=== PATIENT | female | born 1965 | race Caucasian/White ===

== ENCOUNTER 2022-08-25 13:51 | Observation (INO) | payer OTHER ==
[2022-08-25] MEDS ORDERED: SODIUM CHLORIDE 0.9% 500 ML 500 ML IV STA (14:15)
--- NOTE | 2022-08-25 14:18 | ED ---
Chest Pain HPI - General Chief Complaint: Chest Pain Stated Complaint: dizziness, chest pain Time Seen by Provider: 08/25/22 14:07 Source: patient, RN notes reviewed Mode of arrival: ambulatory Limitations: no limitations - History of Present Illness Initial Comments: 57-year-old female presents emergency Department chief complaint left-sided chest pain, shoulder pain. Patient states started while she was at work. She does admit that she was lifting some heavy things and is unsure she injured herself off but also complains an indigestion of chest discomfort. Patient states that she was a smoker for 40 years. Patient states that she was seen [facility] and sent here for further evaluation. Patient states she's ALLERGIC aspirin refuses aspirin. Patient states she had family member that at this stage from myocardial infarction. Patient states she so she was brought on diabetic in the past but has never followed up. Patient does this for rash states pain started chest and left shoulder - Related Data Allergies Allergy/AdvReac Type Severity Reaction Status Date / Time aspirin Allergy Anaphylaxis Verified 08/25/22 14:06 cephalexin [From Keflex] Allergy Unknown Verified 08/25/22 14:07 Penicillins Allergy Unknown Verified 08/25/22 14:07 Childhood Review of Systems ROS Statement: Those systems with pertinent positive or pertinent negative responses have been documented in the HPI. ROS Other: All systems not noted in ROS Statement are negative. EKG Findings - EKG Comments: EKG Findings:: EKG performed at 14:14 sinus rhythm rate of 76 TN 165/105 QT/ QTC 387/417 - EKG Results: EKG: interpreted by ILENE Past Medical History History of Any Multi-Drug Resistant Organisms: None Reported Past Surgical History: Appendectomy Past Psychological History: No Psychological Hx Reported Smoking Status: Former smoker Past Alcohol Use History: None Reported Past Drug Use History: None Reported General Exam Limitations: no limitations General appearance: alert, in no apparent distress Head exam: Present: atraumatic, normocephalic, normal inspection Eye exam: Present: normal appearance, PERRL, EOMI. Absent: scleral icterus, conjunctival injection, periorbital swelling ENT exam: Present: normal exam, normal oropharynx, mucous membranes moist Neck exam: Present: normal inspection, full ROM. Absent: tenderness, meningismus, lymphadenopathy Respiratory exam: Present: normal lung sounds bilaterally. Absent: respiratory distress, wheezes, rales, rhonchi, stridor Cardiovascular Exam: Present: regular rate, normal rhythm, normal heart sounds. Absent: systolic murmur, diastolic murmur, rubs, gallop, clicks GI/Abdominal exam: Present: soft, normal bowel sounds. Absent: distended, tenderness, guarding, rebound, rigid Course Vital Signs 08/25/22 08/25/22 14:00 15:37 Temperature 97.8 F Pulse Rate 86 85 Respiratory 18 20 Rate Blood Pressure 104/69 127/89 O2 Sat by Pulse 96 97 Oximetry Chest Pain MDM - MDM Was pt. sent in by a medical professional or institution (, PA, CUFF SETTER LOCKSTITCH, urgent care, hospital, or alf...) When possible be specific @ -[facility] Did you speak to anyone other than the patient for history (EMS, parent, family, police, friend...)? What history was obtained from this source @ -No Did you review nursing and triage notes (agree or disagree)? Why? @ -I reviewed and agree with nursing and triage notes Were old charts reviewed (outside hosp., previous admission, EMS record, old EKG, old radiological studies, urgent care reports/EKG's, alf records)? Report findings @ -No old charts were reviewed Differential Diagnosis (chest pain, altered mental status, abdominal pain women, abdominal pain men, vaginal bleeding, weakness, fever, dyspnea, syncope, headache, dizziness, GI bleed, back pain, seizure, CVA, palpatations, mental health, musculoskeletal)? @ -Differential Chest Pain: Stable Angina, Unstable Angina, STEMI, NSTEMI Aortic Dissection, Pneumothorax, Musculoskeletal, Esophageal Spasm GERD, Cholecystitis, Pancreatitis, Zoster, this is not meant to be an all-inclusive list. e EKG interpreted by me (3pts min.). @ -As above X-rays interpreted by me (1pt min.). @ -Chest x-ray shows no acute cardio pulmonary process. CT interpreted by me (1pt min.). @ -None done U/S interpreted by me (1pt. min.). @ -None done What testing was considered but not performed or refused? (CT, X-rays, U/S, labs)? Why? @ -None What meds were considered but not given or refused? Why? @ -None Did you discuss the management of the patient with other professionals (professionals i.e. , PA, CU[employer] SETTER LOCKSTITCH, lab, RT, psych nurse, aids social worker, lithographic general worker, teacher, security flex officer, rehabilitation case coordinator)? Give summary @ -Dr lopez for admission given cardiac risk factors and current symptomology of left sided chest and shoulder pain. Was smoking cessation discussed for >3mins.? @ -No Was critical care preformed (if so, how long)? @ -No Were there social determinants of health that impacted care today? How? (Homelessness, low income, unemployed, alcoholism, drug addiction, transportation, low edu. Level, literacy, decrease access to med. care, prison, rehab)? @ -No Was there de-escalation of care discussed even if they declined (Discuss DNR or withdrawal of care, Hospice)? DNR status @ -No What co-morbidities impacted this encounter? (DM, HTN, Smoking, COPD, CAD, Cancer, CVA, ARF, Chemo, Hep., AIDS, mental health diagnosis, sleep apnea, morbid obesity)? @ -Smoking history, family heart history Was patient admitted / discharged? Hospital course, mention meds given and [place], prescriptions, significant lab abnormalities, going to OR and other pertinent info. @ -hospital admitted to observation for cardiac rule out patient has significant family history and multiple risk factors, patient's heart score is 4 patient's case discussed with sound physician for admission Undiagnosed new problem with uncertain prognosis? @ -No Drug Therapy requiring intensive monitoring for toxicity (Heparin, Nitro, Insulin, Cardizem)? @ -No Were any procedures done? @ -No Diagnosis/symptom? @ -Chest pain Acute, or Chronic, or Acute on Chronic? @ -Acute Uncomplicated (without systemic symptoms) or Complicated (systemic symptoms)? @ -Uncomplicated Side effects of treatment? @ -No Exacerbation, Progression, or Severe Exacerbation? @ -No Poses a threat to life or bodily function? How? (Chest pain, [place], MD, pneumonia, PE, COPD, DKA, ARF, appy, cholecystitis, CVA, Diverticulitis, Homicidal, Suicidal, threat to staff... and all critical care pts) @ -Yes chest pain at risk for myocardial infarction, cardiac arrest Disposition Clinical Impression: Chest pain Disposition: ADMITTED IP TO THIS [facility] Condition: Fair Referrals: None,Stated [Primary Care Provider] - 1-2 days Time of Disposition: 15:41
[2022-08-25 14:56] LABS: Basophils % (A) 0 %; Eosinophils # (A) 0.2 k/uL (0-0.7); Eosinophils % (A) 2 %; HCT 39.8 % (34.0-46.0); HGB 13.5 gm/dL (11.4-16.0); Lymphocytes % (A) 23 %; MCH 32.5 pg (25.0-35.0); MCHC 33.8 g/dL (31.0-37.0); MCV 96.1 fL (80.0-100.0); Mean Platelet Volume 7.3; Monocytes # (A) 0.4 k/uL (0-1.0); Monocytes % (A) 5 %; Neutrophils # (A) 5.8 k/uL (1.3-7.7); Neutrophils % (A) 67 %; Platelet Count 244 k/uL (150-450); RBC 4.14 m/uL (3.80-5.40); RDW 12.3 % (11.5-15.5); WBC 8.6 k/uL (3.8-10.6)
[2022-08-25 15:06] LABS: Albumin 4.1 g/dL (3.5-5.0); Calcium 9.2 mg/dL (8.4-10.2); Magnesium 1.8 mg/dL (1.6-2.3); Potassium 4.2 mmol/L (3.5-5.1); Total Bilirubin 0.3 mg/dL (0.2-1.3); Total Protein 6.7 g/dL (6.3-8.2)
[2022-08-25 15:23] LABS: INR 0.9 (<1.2)
--- NOTE | 2022-08-25 15:32 | XR ---
EXAMINATION TYPE: XR chest 2V DATE OF EXAM: 08/25/2022 COMPARISON: None HISTORY: 57-year-old female with chest pain and dizziness TECHNIQUE: PA and lateral views FINDINGS: Heart normal size. Aorta and pulmonary vasculature within normal limits. Mild interstitial prominence has a chronic appearance. No consolidation or pleural effusion. IMPRESSION: No acute cardiopulmonary process.
[2022-08-25] MEDS ORDERED: NITROGLYCERIN SL TABS 0.4 MG TAB SUBLINGUAL PRN (15:55)
--- NOTE | 2022-08-25 16:51 | P.HPIM ---
History of Present Illness H&P Date: 08/25/22 History of Presenting Illness: Patient is a pleasant 57-year-old female with a past medical history of hypertension and hyperlipidemia. Patient reports previously being on medication but took herself off of medication many years ago secondary to lack of follow- up. 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 She states today while at work she developed pain to her left lateral neck and shoulder accompanied by some dizziness/lightheadedness and a squeezing sensation to her left anterior chest. Patient states she was working and does have a physical job but has never felt this sensation before. Patient denies personally having a cardiac history but does report that her father at a younger age from heart disease. Patient reports limited known family history due to some personal family dynamics. Patient denies having any diaphoresis, fevers, chills, changes in vision or hearing, palpitations, shortness of breath, cough or congestion, or experiencing any numbness/focal weakness in her extremities. She underwent full evaluation in the emergency department. Labs completed and reviewed. CBC, coags, and CMP were unremarkable with the exception of mild prerenal azotemia with BUN of 28.. D-dimer was negative at 0.35. Troponin negative at less than 0.012. ProBNP 20. Chest x-ray completed and radiology report reviewed stating negative for acute cardiopulmonary process. EKG completed showing normal sinus rhythm at 76 bpm with no noted T- wave or ST abnormalities showing no signs of acute ischemia upon personal review and interpretation. Discussed patient's history, presenting symptoms, physical exam findings, laboratory analysis, and imaging results in detail with ED provider. Patient to be admitted under our services to observation unit with telemetry and consultation placed to cardiology at this time. Review of systems: Pertinent positives and negatives as discussed in HPI, a complete review of systems was performed and all other systems are negative. Physical exam: Vital signs reviewed and stable. General: Nontoxic, no distress and appears stated age. Obese. Derm: Skin warm and dry, normal coloration for ethnicity. Head: Atraumatic, normocephalic and symmetric. Eyes: EOMs intact, no lid lag, and anicteric sclera Mouth: no lip lesions, mucus membranes moist Cardiovascular: regular rate and rhythm with normal S1S2, no murmur, positive posterior tibial pulses bilaterally, and cap refill < 2 seconds. Lungs: Respirations even, regular, and unlabored on room air. Lungs CTA bilaterally, no rhonchi, no rales, no wheezing, and no accessory muscle usage. Abdominal: soft, nontender to palpation, no guarding, no appreciable organ omegaly Ext: ROM intact. No gross muscle atrophy, no edema, no contractures Neuro: Speech clear, face symmetrical and CN II-XII grossly intact with no noted focal neuro deficits Psych: Alert and oriented to person, place, time, and situation. Appropriate and pleasant affect. Assessment and Plan of Care: Chest pain, rule out acute coronary event Reported history of hypertension and hyperlipidemia -Labs completed and reviewed. CBC, coags, and CMP were unremarkable with the exception of mild prerenal azotemia with BUN of 28.. D-dimer was negative at 0.35. Troponin negative at less than 0.012. ProBNP 20. -Chest x-ray completed and radiology report reviewed stating negative for acute cardiopulmonary process. -EKG completed showing normal sinus rhythm at 76 bpm with no noted T-wave or ST abnormalities showing no signs of acute ischemia upon personal review and interpretation. -Discussed patient's history, presenting symptoms, physical exam findings, laboratory analysis, and imaging results in detail with ED provider. Patient to be admitted under our services to observation unit with telemetry. -Cardiology consulted, appreciate further recommendations -Telemetry monitoring -Trend troponins -Cardiac diet, NPO at midnight -Lipid profile and hemoglobin A1c with a.m. labs. -Echocardiogram -Aspirin not given secondary to reports of anaphylactic ALLERGY to this medication The patient is admitted with an anticipated less than 2 midnight stay for evaluation of chest pain CODE STATUS: Full code DVT prophylaxis: Lovenox Discussed with: Patient, RN, in ED provider Anticipated discharge date: 24-[address]: Home Patient was seen independently by Nurse Practitioner. This document was prepared using [employer] dictation software. Please allow for errors in supervisor prep while rare they do occur. Past Medical History History of Any Multi-Drug Resistant Organisms: None Reported Past Surgical History: Appendectomy Past Psychological History: No Psychological Hx Reported Smoking Status: Former smoker Past Alcohol Use History: None Reported Past Drug Use History: None Reported Medications and Allergies Home Medications Medication Instructions Recorded Confirmed Type No Known Home Medications 05/25/23 05/25/23 History Allergies Allergy/AdvReac Type Severity Reaction Status Date / Time aspirin Allergy Anaphylaxis Verified 08/25/22 16:43 cephalexin [From Keflex] Allergy Unknown Verified 08/25/22 16:43 Penicillins Allergy Unknown Verified 08/25/22 16:43 Childhood Physical Exam Vitals: Vital Signs Temp Pulse Resp BP Pulse Ox 08/25/22 16:34 79 18 117/88 96 08/25/22 15:37 85 20 127/89 97 08/25/22 14:00 97.8 F 86 18 104/69 96 Intake and Output 08/25/22 08/25/22 08/25/22 06:59 14:59 22:59 Other: Weight 95.254 kg Results CBC & Chem 7: 08/25/22 14:34 08/25/22 14:34 Labs: Abnormal Lab Results - Last 24 Hours (Table) 08/25/22 Range/Units 14:34 BUN 28 H (7-17) mg/dL Glucose 104 H (74-99) mg/dL
[2022-08-25] MEDS ORDERED: MELATONIN 3 MG TABLET PO PRN (19:13)
[2022-08-25] MEDS ORDERED: ALPRAZolam 0.5 MG TAB PO SCH (21:00)
[2022-08-26] MEDS ORDERED: DOBUTamine DRIP for NUC MED 500 MG/250 ML BAG IV ONE (08:00)
[2022-08-26 08:01] VITALS: BP 110/71; PULSE 60; RESP 18; TEMP 97.9
[2022-08-26] MEDS ORDERED: DOBUTamine DRIP for NUC MED 500 MG in DEXTROSE/WATER 1 250ML.BAG IV PRN (08:07)
[2022-08-26 08:48] LABS: Chol/HDL Ratio 3.61 Ratio; LDL Cholesterol,Calculated 109.2 mg/dL (0.0-131.0)
[2022-08-26] MEDS ORDERED: ENOXAPARIN 40 MG/0.4 ML SYRINGE SQ SCH (09:00)
--- NOTE | 2022-08-26 10:45 | P.CRDCN ---
History of Present Illness History of present illness: HISTORY OF PRESENT ILLNESS: This is a 57-year-old female with a past medical history significant for prediabetes and former nicotine dependence. 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 We have been asked to see the patient in consultation for chest pain. Patient examined at the bedside. Patient states that yesterday she was at work and feeling in her normal state of health. She states after lunch she went back to work and felt dizzy and lightheaded. She reports having some chest pain in her left arm and neck. However she states that she has been lifting a lot of heavy metal at work over the past couple days and thought it may be musculoskeletal in nature. The patient reports that she does not check her blood pressure at home however she states that her blood pressure does spike when she eats too much salt. She states that yesterday she had a V8 juice at lunch. The patient is noted to have labile blood pressures since admission with systolics ranging between [id number]. The patient states that she is a former cigarette smoker and quit smoking 3 months ago. * EKG reveals sinus bradycardia with nonspecific ST-T wave changes. No evidence of acute ischemia * Chest xray negative for acute process * Laboratory data: WBC 8.6. Hemoglobin 13.5. Platelet count 244. D-dimer 0.35. Sodium 140. Potassium 4.2. BUN 28. Creatinine 0.90. Troponin negative 3. * Current home cardiac medications include none REVIEW OF SYSTEMS: At the time of my exam: CONSTITUTIONAL: Denies fever or chills. HEENT: Denies blurred vision, vision changes, or eye pain. Denies hemoptysis CARDIOVASCULAR: Denies chest pain. Denies orthopnea. Denies PND. Denies palpitations RESPIRATORY: Denies shortness of breath. GASTROINTESTINAL: Denies abdominal pain. Denies nausea or vomiting. HEMATOLOGIC: Denies bleeding disorders. GENITOURINARY: Denies any blood in urine. SKIN: Denies pruitis. Denies rash. PHYSICAL EXAM: VITAL SIGNS: Reviewed. GENERAL: Well-developed in no acute distress. HEENT: Head is normocephalic. Pupils are equal, round. Sclerae anicteric. Mucous membranes of the mouth are moist. Neck supple. No JVD or thyromegaly LUNGS: Respirations even and unlabored. Lungs essentially clear to auscultation bilaterally. HEART: Regular rate and rhythm. S1 and S2 heard. ABDOMEN: Soft. Nondistended. Nontender. EXTREMITIES: Normal range of motion. No clubbing or cyanosis. Peripheral pulses intact. No lower extremity edema NEUROLOGIC: Awake and alert. Oriented x 3. ASSESSMENT: Chest pain, troponins negative 3 Dizziness and lightheadedness [place] [id number] Former nicotine dependence, patient quit smoking 3 months ago Prediabetes PLAN: An acute coronary event has been ruled out Obtain 2-D echo to assess cardiac structure and function Patient encouraged to follow a low-salt diet Patient encouraged to monitor blood pressure at home Patient to undergo dobutamine stress test today If negative, she may be discharged home today from a cardiac standpoint Nurse practitioner note has been reviewed by physician. Signing provider agrees with the documented findings, assessment, and plan of care. Past Medical History History of Any Multi-Drug Resistant Organisms: None Reported Past Surgical History: Appendectomy Past Psychological History: No Psychological Hx Reported Smoking Status: Former smoker Past Alcohol Use History: None Reported Past Drug Use History: None Reported Medications and Allergies Home Medications Medication Instructions Recorded Confirmed Type No Known Home Medications 08/25/22 08/25/22 History Allergies Allergy/AdvReac Type Severity Reaction Status Date / Time aspirin Allergy Anaphylaxis Verified 08/25/22 16:43 cephalexin [From Keflex] Allergy Unknown Verified 08/25/22 16:43 Penicillins Allergy Unknown Verified 08/25/22 16:43 Childhood Physical Exam Vitals: Vital Signs Temp Pulse Pulse Resp BP BP Pulse Ox 08/26/22 02:00 98.2 F 67 14 99/64 97 08/25/22 20:00 98.5 F 86 20 155/77 94 L 08/25/22 17:07 98.5 F 79 18 135/87 94 L 08/25/22 16:34 79 18 117/88 96 08/25/22 15:37 85 20 127/89 97 08/25/22 14:00 97.8 F 86 18 104/69 96 Intake and Output 08/25/22 08/26/22 08/26/22 22:59 06:59 14:59 Other: Voiding Method Toilet # Voids 1 1 Weight 95.254 kg Results 08/25/22 14:34 08/25/22 14:34 Cardiac Enzymes 08/25/22 08/25/22 08/25/22 Range/Units 14:34 14:34 16:27 AST 26 (14-36) U/L Troponin I <0.012 <0.012 (0.000-0.034) ng/mL 08/25/22 Range/Units 18:57 AST (14-36) U/L Troponin I <0.012 (0.000-0.034) ng/mL Coagulation 08/25/22 Range/Units 14:34 PT 10.0 (9.0-12.0) sec APTT 22.0 (22.0-30.0) sec CBC 08/25/22 Range/Units 14:34 WBC 8.6 (3.8-10.6) k/uL RBC 4.14 (3.80-5.40) m/uL Hgb 13.5 (11.4-16.0) gm/dL Hct 39.8 (34.0-46.0) % Plt Count 244 (150-450) k/uL Comprehensive Metabolic Panel 08/25/22 Range/Units 14:34 Sodium 140 (137-145) mmol/L Potassium 4.2 (3.5-5.1) mmol/L Chloride 107 (98-107) mmol/L Carbon Dioxide 25 (22-30) mmol/L BUN 28 H (7-17) mg/dL Creatinine 0.90 (0.52-1.04) mg/dL Glucose 104 H (74-99) mg/dL Calcium 9.2 (8.4-10.2) mg/dL AST 26 (14-36) U/L ALT 27 (4-34) U/L Alkaline Phosphatase 67 (38-126) U/L Total Protein 6.7 (6.3-8.2) g/dL Albumin 4.1 (3.5-5.0) g/dL Current Medications Generic Name Dose Route Start Last Admin Trade Name Freq PRN Reason Stop Dose Admin Alprazolam 0.5 mg 08/25/22 21:00 08/25/22 21:33 Alprazolam 0.5 Mg Tab PO 0.5 mg HS CONOR Administration Enoxaparin Sodium 40 mg 08/26/22 09:00 Enoxaparin 40 Mg/0.4 Ml Syringe SQ DAILY CONOR Melatonin 3 mg 08/25/22 19:13 Melatonin 3 Mg Tablet PO HS PRN Insomnia Nitroglycerin 0.4 mg 08/25/22 15:55 Nitroglycerin Sl Tabs 0.4 Mg Tab SUBLINGUAL Q5M PRN Chest Pain Intake and Output 08/25/22 08/26/22 08/26/22 22:59 06:59 14:59 Other: Voiding Method Toilet # Voids 1 1 Weight 95.254 kg 08/25/22 14:34 08/25/22 14:34
--- NOTE | 2022-08-26 12:26 | P.DS ---
Providers Date of admission: 08/25/22 16:09 Expected date of discharge: 08/26/22 Attending physician: Ladarius Garcia MD Consults: 08/25/22 15:55 Consult Physician Urgent Consulting Provider: Lloyd Viera Consult Reason/Comments: chest pain Do you want consulting provider notified?: Yes Primary care physician: Stated None Hospital Course: Discharge Diagnosis: Chest pain, acute coronary event ruled out. Hypertension, patient reports previously being on lisinopril but has been off of it for a couple of years. Blood pressures stable throughout hospitalization. Hyperlipidemia, lipid profile revealing slightly elevated triglycerides and cholesterol with triglycerides of 195 and cholesterol of 205. Discussed with patient and recommend following a heart healthy and carb consistent diet. Hospital Course: Patient is a pleasant 57-year-old female with a past medical history of hypert ension and hyperlipidemia. Patient reports previously being on medication but took herself off of medication many years ago secondary to lack of follow-up. 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 She states today while at work she developed pain to her left lateral neck and shoulder accompanied by some dizziness/lightheadedness and a squeezing sensation to her left anterior chest. Patient states she was working and does have a physical job but has never felt this sensation before. Patient denies personally having a cardiac history but does report that her father at a younger age from heart disease. Patient reports limited known family history due to some personal family dynamics. Patient denies having any diaphoresis, fevers, chills, changes in vision or hearing, palpitations, shortness of breath, cough or congestion, or experiencing any numbness/focal weakness in her extremities. She underwent full evaluation in the emergency department. Labs completed and reviewed. CBC, coags, and CMP were unremarkable with the exception of mild prerenal azotemia with BUN of 28.. D-dimer was negative at 0.35. Troponin negative at less than 0.012. ProBNP 20. Chest x-ray completed and radiology report reviewed stating negative for acute cardiopulmonary process. EKG completed showing normal sinus rhythm at 76 bpm with no noted T- wave or ST abnormalities showing no signs of acute ischemia upon personal review and interpretation. Discussed patient's history, presenting symptoms, physical exam findings, laboratory analysis, and imaging results in detail with ED provider. Patient was admitted under our services to observation unit with telemetry with consult to cardiology. Patient monitored overnight and troponins were trended all resulting negative at less than 0.0123 draws. Patient was evaluated by cardiology and acute coronary event was ruled out. Patient was taken for a dobutamine stress test which was reported to be negative with no reported scintigraphic evidence of inducible ischemia per cardiology as report was not available at time of discharge. Echocardiogram also completed and patient to follow up outpatient with interior decorator in 1 week to review these results. Physical exam: Vital signs reviewed and stable. General: Nontoxic, no distress and appears stated age. Obese. Derm: Skin warm and dry, normal coloration for ethnicity. Head: Atraumatic, normocephalic and symmetric. Eyes: EOMs intact, no lid lag, and anicteric sclera Mouth: no lip lesions, mucus membranes moist Cardiovascular: regular rate and rhythm with normal S1S2, no murmur, positive posterior tibial pulses bilaterally, and cap refill < 2 seconds. Lungs: Respirations even, regular, and unlabored on room air. Lungs CTA bilaterally, no rhonchi, no rales, no wheezing, and no accessory muscle usage. Abdominal: soft, nontender to palpation, no guarding, no appreciable organomegaly Ext: ROM intact. No gross muscle atrophy, no edema, no contractures Neuro: Speech clear, face symmetrical and CN II-XII grossly intact with no noted focal neuro deficits Psych: Alert and oriented to person, place, time, and situation. Appropriate and pleasant affect. A total of 31 minutes of time were spent preparing this complex discharge summary. Pt was discharged on 08/26/22 at 12:24 PM Patient was seen independently by Nurse Practitioner. This document was prepared using [employer] dictation software. Please allow for errors in distance learning program coordinator while rare they do occur. Wally Hung NP rendered care for this patient independently, reviewed the findings and plan as documented in the note above. I did not physically speak with or examine the patient on this date. Patient Condition at Discharge: Stable Plan - Discharge Summary New Discharge Prescriptions: No Action No Known Home Medications Discharge Medication List No Known Home Medications 08/25/22 [History] Follow up Appointment(s)/Referral(s): Gene Kc MD [STAFF PHYSICIAN] - 1 Week (Office will call with appointment time and date.) Ajit Carr MD [STAFF PHYSICIAN] - 1 Week None,Stated [Primary Care Provider] - 1-2 days Patient Instructions/Handouts: Chest Pain (DC), Nuclear Stress Test (DC) Activity/Diet/Wound Care/Special Instructions: Activity: As tolerated. Take breaks as needed. Diet: Heart healthy and carb consistent diet. Avoid salts, or foods with hidden salts such as canned or boxed foods and frozen dinners. Extra salt makes your heart work harder and traps the fluid in your body for longer. Special Instructions: Take all of your medications as directed and remember to keep all of your doctor's appointments and follow-up as needed. You will need to follow up outpatient with interior decorator in 1 week to discuss your echocardiogram results and further recommendations. Thank you for allowing us to participate in your care, it was truly a pleasure having you for our patient!!! Discharge/Stand Alone Forms: Community Resources Discharge Disposition: HOME SELF-CARE
--- NOTE | 2022-08-27 17:07 | CA ---
Transthoracic Echo Report Name: Kim Jim Age: 57 Gender: F : 1965 Exam Date: 08/26/2022 11:21 Exam Location: [facility] Ht (in): 66 Wt (lb): 210 Ordering Physician: Darshan Levine Attending/Referring Phys: [id number], Julianna Auto Machinist Beth Arora, ERNESTO Procedure CPT: Indications: Chest Pain Cardiac Hx: Technical Quality: Fair Contrast 1: Total Dose (mL): Contrast 2: Total Dose (mL): MEASUREMENTS (Male / Female) Normal Values 2D ECHO LV Diastolic Diameter PLAX 4.8 cm 4.2 - 5.9 / 3.9 - 5.3 cm LV Systolic Diameter PLAX 3.1 cm IVS Diastolic Thickness 1.1 cm 0.6 - 1.0 / 0.6 - 0.9 cm LVPW Diastolic Thickness 1.1 cm 0.6 - 1.0 / 0.6 - 0.9 cm LV Relative Wall Thickness 0.5 RV Internal Dim ED PLAX 4.3 cm LA Volume 34.8 cm??? 18 - 58 / 22 - 52 cm??? M-MODE Aortic Root Diameter MM 3.0 cm LA Systolic Diameter MM 4.1 cm LA Ao Ratio MM 1.4 AV Cusp Separation MM 2.2 cm DOPPLER AV Peak Velocity 127.8 cm/s AV Peak Gradient 6.5 mmHg AV Mean Velocity 89.9 cm/s AV Mean Gradient 3.7 mmHg AV Velocity Time Integral 24.6 cm MV Area PHT 4.2 cm??? Mitral E Point Velocity 72.7 cm/s Mitral A Point Velocity 86.7 cm/s Mitral E to A Ratio 0.8 MV Deceleration Time 179.9 ms MV E' Velocity 8.9 cm/s Mitral E to MV E' Ratio 8.2 FINDINGS Left Ventricle Mildly increased left ventricular wall thickness. Normal left ventricular systolic function with no obvious regional wall motion abnormalities. Left ventricular ejection fraction is estimated at 55-60 %. Left ventricular cavity size normal. Right Ventricle Moderate right ventricular dilatation. Right ventricular systolic pressure within normal limits. Right Atrium Normal right atrial size. Left Atrium Normal left atrial size. Mitral Valve Structurally normal mitral valve. No mitral stenosis. Trace to mild mitral regurgitation. Aortic Valve Trileaflet aortic valve. No aortic valve stenosis or regurgitation. Tricuspid Valve Structurally normal tricuspid valve. Mild tricuspid regurgitation. Pulmonic Valve Trace pulmonic regurgitation. Pericardium No pericardial effusion. Aorta Normal size aortic root and proximal ascending aorta. CONCLUSIONS LVH with preserved systolic function Previewed by: Dr. Gene Kc MD (Electronically Signed) Final Date: 27 Aug 2022 17:07
--- NOTE | 2022-08-27 17:51 | CA ---
Dobutamine Stress Echocardiogram Report Kim Jim Age: 57 Gender: F : 1965 Exam Date: 08/26/2022 10:49 Exam Location: [facility] Ordering Physician: Moni Mota Referring Physician: Nakul VAN Alumni Relations Manager: MAHENDRA Technologist: Ht (in): 66 Wt (lb): 210 Procedure CPT: Indication: CP, dizziness ICD-9 Codes: Rhythm: Patient History: CHEST PAIN, DIFFICULTY IN BREATING, PALPITATIONS, HTN, FAMILY HX OF HEART DISEASE, FORMER SMOKER - QUIT 3 MONTHS (2 PPD X 50+ YEARS) Cardiac Medications: Medications in past 24 hours: Contrast: Total Dose (mL): Stress Results Protocol: Dobutamine Peak Dose (???g/kg/min): Duration (min:sec): Atropine:(mg) Target HR: 139 Double Product: [id number] Resting HR: 57 Resting BP: 115 / 80 Peak HR: 142 Peak BP: 162 / 75 Max Predicted HR: 164 87 % Max Predicted HR Stress Summary: BP Response: Reason for Termination: TARGET HR ACHIEVED Cardiac Symptoms: ECG Analysis Resting EKG: Stress EKG: Arrhythmia: Echo Analysis Base Echo Analysis: Low Echo Anaylsis: Peak Echo Analysis: Recovery Echo: MEASUREMENTS (Male/Female) Normal Values CONCLUSIONS Dobutamine stress echo Baseline heart is 60 beats a minute, Baseline blood pressure 115/80 mmHg Baseline EKG shows significant artifact, occasional PVCs Recent 2-D echo showed normal LV systolic function without segmental wall motion abnormalities Patient received dobutamine infusion per protocol Normal heart rate and blood pressure response Significant artifact noted on ECGs During dobutamine infusion and recovery frequent PVCs noted Echocardiographic images with contrast revealed excellent augmentation of overall contractility in a stepwise manner No wall motion abnormalities noted @To call physician: Systolic function remained normal Dr. Gene Kc MD (Electronically Signed) Final Date: 27 Aug 2022 17:50
== END 2022-08-26 14:25 | disposition home or self-care (01) ==
LOC: EC 13:51 → 6NMEDSUR 16:09
PROVIDERS: ADMIT Student in an Organized Health Care Education/Training Program; ATTEND Student in an Organized Health Care Education/Training Program
DX: R07.89 Other chest pain (principal); I10 Essential (primary) hypertension; E78.5 Hyperlipidemia, unspecified; R73.03 Prediabetes; R42 Dizziness and giddiness; M25.512 Pain in left shoulder; R79.89 Other specified abnormal findings of blood chemistry; E66.9 Obesity, unspecified; Z68.32 Body mass index [BMI] 32.0-32.9, adult; Z91.148 Patient's other noncompliance with medication regimen for other reason; Z88.0 Allergy status to penicillin; Z88.1 Allergy status to other antibiotic agents; Z88.6 Allergy status to analgesic agent; Z90.49 Acquired absence of other specified parts of digestive tract; Z87.891 Personal history of nicotine dependence; Z82.49 Family history of ischemic heart disease and other diseases of the circulatory system
CPT/HCPCS: 96372; 96360; 99285; 36415; 93005; 93306; 93351; 85379; 83880; 80061; 80053; 83735; 84484; 85025; 85610; 85730; 83036; 71046; G0378 ×2; J1250; J1650

== ENCOUNTER 2023-01-09 17:56 | Emergency (ER) | payer OTHER ==
[2023-01-09 19:19] VITALS: RESP 18; TEMP 98.1
--- NOTE | 2023-01-09 19:19 | ED ---
ENT HPI - General Source: patient, RN notes reviewed Mode of arrival: ambulatory Limitations: no limitations <Darshan Levine - Last Filed: 01/09/23 19:19> - General Source: patient, RN notes reviewed Mode of arrival: ambulatory Limitations: no limitations <Stanley Nunez - Last Filed: 01/09/23 20:50> - General Chief complaint: ENT Stated complaint: shingles Time Seen by Provider: 01/09/23 19:19 - History of Present Illness Initial comments: 57-year-old female presents emergency Department chief complaint of bilateral ear infection. Patient states that she was sent from urgent care for further evaluation. She dizziness, bilateral ear infections and pain behind her left eye. (Darshan Levine) Patient is a pleasant 57-year-old female presenting to the emergency department with concern for shingles. Patient was sent from urgent care. Onset of symptoms was 4 days ago. Patient thought she had hives of her forehead. Patient states there is discomfort of her forehead. Patient also has some congestion and ear fullness. Patient also has mild sore throat. No fevers. No eye pain or visual changes. (Stanley Nunez) - Related Data Previous Rx's Medication Instructions Recorded Acyclovir 800 mg PO DIRECTED #35 tablet 01/09/23 Allergies Allergy/AdvReac Type Severity Reaction Status Date / Time aspirin Allergy Anaphylaxis Verified 01/09/23 19:12 cephalexin [From Keflex] Allergy Unknown Verified 01/09/23 19:12 Penicillins Allergy Unknown Verified 01/09/23 19:12 Childhood Review of Systems ROS Other: All systems not noted in ROS Statement are negative. <Darshan Levine - Last Filed: 01/09/23 19:19> ROS Other: All systems not noted in ROS Statement are negative. Constitutional: Denies: fever, chills Eyes: Reports: as per HPI ENT: Reports: as per HPI Respiratory: Denies: dyspnea Cardiovascular: Denies: chest pain Endocrine: Denies: fatigue <Stanley Nunez - Last Filed: 01/09/23 20:50> ROS Statement: Those systems with pertinent positive or pertinent negative responses have been documented in the HPI. Past Medical History Past Medical History: Diabetes Mellitus, Hypertension History of Any Multi-Drug Resistant Organisms: None Reported Past Surgical History: Appendectomy Past Psychological History: No Psychological Hx Reported Smoking Status: Former smoker Past Alcohol Use History: None Reported Past Drug Use History: None Reported <Darshan Levine - Last Filed: 01/09/23 19:19> General Exam Limitations: no limitations General appearance: alert, in no apparent distress Head exam: Present: atraumatic, normocephalic, normal inspection <Darshan Levine - Last Filed: 01/09/23 19:19> Limitations: no limitations General appearance: alert, in no apparent distress Head exam: Present: atraumatic Eye exam: Present: normal appearance, PERRL, EOMI, other (No dendritic changes or uptake with Flurosyn staining). Absent: conjunctival injection ENT exam: Present: normal oropharynx, TM's normal bilaterally Neck exam: Present: normal inspection Respiratory exam: Present: normal lung sounds bilaterally Cardiovascular Exam: Present: regular rate, normal rhythm GI/Abdominal exam: Present: soft. Absent: tenderness Extremities exam: Present: normal inspection Neurological exam: Present: alert, oriented X3, CN II-XII intact. Absent: motor sensory deficit Expanded Neurological exam: Present: protecting the airway Speech: Present: fluid speech Cranial nerves: EOM's Intact: Normal Psychiatric exam: Present: normal affect, normal mood Skin exam: Present: normal color, other (Left forehead and scalp with several erythematous lesions. Mild tenderness.) <Stanley Nunez - Last Filed: 01/09/23 20:50> - General Exam Comments Initial Comments: Visual Physical Exam Vital signs reviewed General: Well-appearing, nontoxic, no acute distress. Head: Normocephalic, atraumatic Eyes: PERRLA, EOMI ENT: Airway patent Chest: Nonlabored breathing Skin: No visual rash, normal skin tone Neuro: Alert and oriented 3 Musculoskeletal: No gross abnormalities (Darshan Levine) Course Vital Signs 01/09/23 19:12 Temperature 98.1 F Pulse Rate 73 Respiratory 18 Rate Blood Pressure 126/84 O2 Sat by Pulse 98 Oximetry Medical Decision Making <Darshan Levine - Last Filed: 01/09/23 19:19> <Stanley Nunez - Last Filed: 01/09/23 20:50> - Medical Decision Making I performed a quick note portion of the signed Darshan Levine PA-C (Darshan Levine) Was pt. sent in by a medical professional or institution (Dr., PA, BRANCH CHIEF, urgent care, hospital, or [facility]...) When possible be specific @ -Patient was sent from urgent care Did you speak to anyone other than the patient for history (EMS, parent, family, police, friend...)? What history was obtained from this source @ -No Did you review nursing and triage notes (agree or disagree)? Why? @ -I reviewed and agree with nursing and triage notes Were old charts reviewed (outside hosp., previous admission, EMS record, old EKG, old radiological studies, urgent care reports/EKG's, [facility] records)? Report findings @ -No old charts were reviewed Differential Diagnosis (chest pain, altered mental status, abdominal pain women, abdominal pain men, vaginal bleeding, weakness, fever, dyspnea, syncope, headache, dizziness, GI bleed, back pain, seizure, CVA, palpatations, mental health, musculoskeletal)? @ -not applicable EKG interpreted by me (3pts min.). @ -As above X-rays interpreted by me (1pt min.). @ -None done CT interpreted by me (1pt min.). @ -None done U/S interpreted by me (1pt. min.). @ -None done What testing was considered but not performed or refused? (CT, X-rays, U/S, labs)? Why? @ -None What meds were considered but not given or refused? Why? @ -None Did you discuss the management of the patient with other professionals (professionals i.e. REGINE Arteaga, BRANCH CHIEF, lab, RT, psych nurse, social economist, prism measurer, teacher, security flex officer, case management assistant)? Give summary @ -No Was smoking cessation discussed for >3mins.? @ -No Was critical care preformed (if so, how long)? @ -No Were there social determinants of health that impacted care today? How? (Homelessness, low income, unemployed, alcoholism, drug addiction, transporta tion, low edu. Level, literacy, decrease access to med. care, alf, rehab)? @ -No Was there de-escalation of care discussed even if they declined (Discuss DNR or withdrawal of care, Hospice)? DNR status @ -No What co-morbidities impacted this encounter? (DM, HTN, Smoking, COPD, CAD, Cancer, CVA, ARF, Chemo, Hep., AIDS, mental health diagnosis, sleep apnea, morbid obesity)? @ -None Was patient admitted / discharged? Hospital course, mention meds given and route, prescriptions, significant lab abnormalities, going to OR and other pertinent info. @ -Patient presents with shingles. No evidence of eye involvement. Patient will be covered with antivirals Undiagnosed new problem with uncertain prognosis? @ -No Drug Therapy requiring intensive monitoring for toxicity (Heparin, Nitro, Insulin, Cardizem)? @ -No Were any procedures done? @ -No Diagnosis/symptom? @ -Shingles Acute, or Chronic, or Acute on Chronic? @ -Acute Uncomplicated (without systemic symptoms) or Complicated (systemic symptoms)? @ -default Side effects of treatment? @ -No Exacerbation, Progression, or Severe Exacerbation? @ -No Poses a threat to life or bodily function? How? (Chest pain, USA, DC, pneumonia, PE, COPD, DKA, ARF, appy, cholecystitis, CVA, Diverticulitis, Homicidal, Suicidal, threat to staff... and all critical care pts) @ -No (Stanley Nunez) Disposition <Darshan Levine - Last Filed: 01/09/23 19:19> Is patient prescribed a controlled substance at d/c from ED?: No Time of Disposition: 20:46 <Stanley Nunez - Last Filed: 01/09/23 20:50> Clinical Impression: Shingles Disposition: HOME SELF-CARE Condition: Stable Instructions (If sedation given, give patient instructions): Shingles (ED) Additional Instructions: Prescriptions at the pharmacy. Please do follow-up with primary care physician in the next day or 2 for recheck, number provided. Please also follow-up with ophthalmology, number provided. Return for fevers, visual changes, worsening symptoms or other concerns. Prescriptions: Acyclovir 800 mg PO DIRECTED #35 tablet Referrals: Jerod Díaz MD [STAFF PHYSICIAN] - 1-2 days Jeb Luna MD [STAFF PHYSICIAN] - 1-2 days
[2023-01-09] MEDS ORDERED: FLUORESCEIN STRIPS 1 MG STRIP RIGHT EYE ONE (20:34)
[2023-01-09] MEDS ORDERED: ACET/COD 300 MG/30 MG STARTER PACK 6 TAB BTL PO STA (20:50)
[2023-01-09] MEDS ORDERED: ACYCLOVIR 800 MG TAB PO STA (20:50)
[2023-01-09 21:07] VITALS: BP 128/82; PULSE 66
== END 2023-01-09 21:03 | disposition home or self-care (01) ==
LOC: EC 17:56
DX: B02.9 Zoster without complications (principal); E11.9 Type 2 diabetes mellitus without complications; I10 Essential (primary) hypertension; Z87.891 Personal history of nicotine dependence; Z88.0 Allergy status to penicillin; Z88.1 Allergy status to other antibiotic agents; Z88.6 Allergy status to analgesic agent
CPT/HCPCS: 99283